=== PATIENT | male | born 1995 | race Two or more races ===

== ENCOUNTER 2023-06-06 21:35 | Emergency (ER) | payer MEDICAID ==
[~2023-06-06] VITALS: Ht 177.8 cm; Wt 63.6 kg
[2023-06-06 21:43] VITALS: BP 130/81; PULSE 61; RESP 22; O2SAT 98
[2023-06-06] MEDS ORDERED: ONDANSETRON ODT 4 MG TAB PO ONE (23:15)
[2023-06-06] MEDS ORDERED: KETOROLAC TROMETH 60MG/2ML VIAL IM ONE (23:15)
[2023-06-06] MEDS ORDERED: MORPHINE SULFATE 4 MG/ML SYR/VIAL IM ONE (23:15)
[2023-06-07] MEDS ORDERED: HYDR-4902 PO ×2 (00:29→19:10)
[2023-06-07] MEDS ORDERED: ZOFR4T PO (00:29)
== END 2023-06-07 00:30 | disposition home or self-care (01) ==
LOC: EDBD 21:35 → ER 21:35 → EDUNIT# 21:35 → ER 06-07 00:30
DX: R11.2 Nausea with vomiting, unspecified (principal); M54.50 Low back pain, unspecified